=== PATIENT | male | born 1980 | race Hispanic/Latino ===

== ENCOUNTER 2022-10-07 12:27 | Emergency (ER) | payer SELFPAY ==
[2022-10-07 13:48] LABS: Absolute Lymphocytes (CBC) 1.4 K/uL (0.7-4.9); Lymphocytes % 36.9 % (15.3-44.8); MCV 90.5 fL (80-100); MPV 6.9 fL (7.6-11.3); RBC Red Blood Cell Count 4.31 M/uL (4.33-5.43)
--- NOTE | 2022-10-07 13:59 | RAD REPORT ---
EXAM DESCRIPTION: RAD - Chest Single View - 10/07/2022 1:45 pm CLINICAL HISTORY: CHEST PAIN Chest pain. COMPARISON: No comparisons FINDINGS: Portable technique limits examination quality. The lungs are grossly clear. The heart is normal in size. No displaced fractures. IMPRESSION: No acute intrathoracic process suspected.
[2022-10-07 14:05] LABS: Bilirubin Direct 0.1 mg/dL (0-0.2); Bilirubin Total 0.4 mg/dL (0.2-1.0); Potassium 3.6 mmol/L (3.5-5.1); Protein, Total 7.8 g/dL (6.4-8.2); Troponin High Sensitivity 15.1 pg/mL (<58.9)
[2022-10-07 14:16] LABS: SARS-COV-2 RT PCR NEGATIVE (NEGATIVE)
[2022-10-07] MEDS ORDERED: DIAZEPAM 2 MG TABLET ONE (14:24)
[2022-10-07] MEDS ORDERED: NA CHLORIDE 0.9% 1,000 ML ONE (14:24)
[2022-10-07 15:39] LABS: Protime INR 0.96
--- NOTE | 2022-10-07 16:19 | ER ---
Nurse's Notes [facility] Name: Kady Puentes Age: 42 yrs Sex: Male : 1980 Arrival Date: 10/07/2022 Time: 12:32 Bed 3 Private MD: Diagnosis: Anxiety disorder, unspecified;Essential (primary) hypertension;Chest pain, unspecified Presentation: 10/07 13:15 Chief complaint: Patient states: Depression, anxiety, cough, runny nose, CP x 1 week. jl7 Denies SI, denies HI. Coronavirus screen: Vaccine status: Patient reports being unvaccinated. At this time, the client does not indicate any symptoms associated with coronavirus-19. Ebola Screen: No symptoms or risks identified at this time. Initial Sepsis Screen: Does the patient meet any 2 criteria? No. Patient's initial sepsis screen is negative. Does the patient have a suspected source of infection? No. Patient's initial sepsis screen is negative. Risk Assessment: Do you want to hurt yourself or someone else? Patient reports no desire to harm self or others. Onset of symptoms is unknown. 13:15 Method Of Arrival: Ambulatory [facility] 13:15 Acuity: MAGDALENA 2 jl7 Historical: - Allergies: 13:16 No Known Allergies; jl7 - Home Meds: 13:16 losartan oral [Active]; Metformin Oral [Active]; jl7 - PMHx: 13:16 Hypertensive disorder; Diabetes mellitus; jl7 - Immunization history:: Client reports having NOT received the Covid vaccine. - Social history:: Smoking status: Patient denies any tobacco usage or history of. Patient uses alcohol, on a daily basis. - Family history:: not pertinent. - Hospitalizations: : No recent hospitalization is reported. Screenin:42 [facility] ED Fall Risk Assessment (Adult) History of falling in the last 3 months, ld1 including since admission No falls in past 3 months (0 pts). Abuse screen: Denies threats or abuse. Denies injuries from another. Nutritional screening: No deficits noted. Tuberculosis screening: No symptoms or risk factors identified. Assessment: 13:10 Reassessment: Dr. Duenas in triage assessing pt. jl7 14:42 Reassessment: Patient appears in no apparent distress at this time. General: Appears in ld1 no apparent distress. comfortable, Behavior is cooperative, appropriate for age, anxious. Pain: Denies pain. Neuro: Level of Consciousness is awake, alert, obeys commands, Oriented to person, place, time, situation. Cardiovascular: Capillary refill < 3 seconds Patient's skin is warm and dry. Rhythm is sinus rhythm. Respiratory: Airway is patent Respiratory effort is even, unlabored. GI: Abdomen is flat, non-distended. : No signs and/or symptoms were reported regarding the genitourinary system. EENT: No signs and/or symptoms were reported regarding the EENT system. Derm: No signs and/or symptoms reported regarding the dermatologic system. Musculoskeletal: No signs and/or symptoms reported regarding the musculoskeletal system. 15:17 Reassessment: Patient appears in no apparent distress at this time. Patient and/or ld1 family updated on plan of care and expected duration. Pain level reassessed. Patient is alert, oriented x 3, equal unlabored respirations, skin warm/dry/pink. 15:50 Reassessment: Patient appears in no apparent distress at this time. Patient and/or ld1 family updated on plan of care and expected duration. Pain level reassessed. Patient is alert, oriented x 3, equal unlabored respirations, skin warm/dry/pink. 16:37 Reassessment: Patient appears in no apparent distress at this time. Patient and/or ld1 family updated on plan of care and expected duration. Pain level reassessed. Patient is alert, oriented x 3, equal unlabored respirations, skin warm/dry/pink. Patient denies pain at this time. Vital Signs: 13:15 BP 170 / 110; Pulse 101; Resp 17; Temp 98.8; Pulse Ox 98% on R/A; Weight 77.11 kg; jl7 Height 5 ft. 5 in. (165.10 cm); Pain 8/10; 14:42 BP 172 / 105; Pulse 90; Resp 18; Pulse Ox 99% on R/A; ld1 15:17 BP 164 / 112; Pulse 87; Resp 18; Pulse Ox 97% on R/A; ld1 15:50 BP 152 / 102; Pulse 89; Resp 18; Pulse Ox 100% on R/A; ld1 16:37 BP 149 / 99; Pulse 85; Resp 18; Pulse Ox 100% on R/A; Pain 0/10; ld1 13:15 Body Mass Index 28.29 (77.11 kg, 165.10 cm) jl7 ED Course: 12:32 Patient arrived in ED. mr 12:46 Juan Antonio Duenas MD is Attending Physician. rn 13:00 EKG completed in triage. Results shown to MD. jl7 13:16 Triage completed. jl7 13:16 Arm band placed on right wrist. Patient placed in waiting room, Patient notified of jl7 wait time. 13:26 Inserted saline lock: in left forearm, using aseptic technique. Blood collected. zm 13:26 COVID-19/FLU A+B Sent. zm 13:26 ETOH Level Sent. zm 13:26 Basic Metabolic Panel Sent. zm 13:26 CBC with Diff Sent. zm 13:27 LFT's Sent. zm 13:27 NT PRO-BNP Sent. zm 13:27 PT-INR Sent. zm 13:27 Troponin HS Sent. zm 14:36 Linh Kwong, RN is Primary Nurse. ld1 14:42 Patient has correct armband on for positive identification. Placed in gown. Bed in low ld1 position. Call light in reach. Side rails up X2. quality assurance monitor chassis on. Pulse ox on. NIBP on. Door closed. Noise minimized. Warm blanket given. 14:42 No provider procedures requiring assistance completed. Patient maintains SpO2 ld1 saturation greater than 95% on room air. 16:38 IV discontinued, intact, bleeding controlled, No redness/swelling at site. ld1 Administered Medications: 14:41 Drug: Valium (diazepam) 2 mg Route: PO; ld1 14:42 Drug: NS 0.9% 1000 ml Route: IV; Rate: 1000 ml; Site: left antecubital; ld1 Medication: 14:42 VIS not applicable for this client. ld1 Outcome: 16:19 Discharge ordered by . rn 16:37 Discharged to home ambulatory. ld1 16:37 Condition: stable 16:37 Discharge instructions given to patient, Instructed on discharge instructions, follow up and referral plans. Demonstrated understanding of instructions, follow-up care. 16:38 Patient left the ED. ld1 Signatures: Ab Neelam mr Juan Antonio Duenas MD MD rn Leal, Jahala, RN RN jl7 Linh Kwong, YOVANI PINA ld1 Adele Hurtado
--- NOTE | 2022-10-07 16:19 | EDPHYS ---
Physician Documentation [facility] Name: Kady Puentes Age: 42 yrs Sex: Male : 1980 Arrival Date: 10/07/2022 Time: 12:32 Bed 3 Private MD: ED Physician Juan Antonio Duenas HPI: 10/07 15:10 This 42 yrs old Male presents to ER via Ambulatory with complaints of rn depression, anxiety, Chest Pain. 15:10 The patient presents to the emergency department with anxiety, depression. Onset: The rn symptoms/episode began/occurred at an unknown time. Associated signs and symptoms: Pertinent positives; anxiety, chest pain, Pertinent negatives: abdominal pain, delusions, fever, hallucinations, homicidal ideation, substance abuse, suicide ideation. Severity of symptoms: At their worst the symptoms were moderate in the emergency department the symptoms are unchanged. The patient has not experienced similar symptoms in the past. The patient has not recently seen a physician. Pt reports having "a lot of depression and anxiety" lately. Has coped by drinking ETOH. Reports out of work for a week and no family or friends in town. Denies suicidal or homicidal ideations. No overdose. Denies drug use. . Historical: - Allergies: 13:16 No Known Allergies; jl7 - Home Meds: 13:16 losartan oral [Active]; Metformin Oral [Active]; jl7 - PMHx: 13:16 Hypertensive disorder; Diabetes mellitus; jl7 - Immunization history:: Client reports having NOT received the Covid vaccine. - Social history:: Smoking status: Patient denies any tobacco usage or history of. Patient uses alcohol, on a daily basis. - Family history:: not pertinent. - Hospitalizations: : No recent hospitalization is reported. ROS: 15:10 Constitutional: Negative for fever, chills, and weight loss, Eyes: Negative for injury, rn pain, redness, and discharge, Neck: Negative for injury, pain, and swelling, Cardiovascular: Negative for palpitations, and edema, Respiratory: Negative for shortness of breath, cough, wheezing, and pleuritic chest pain, Abdomen/GI: Negative for abdominal pain, nausea, vomiting, diarrhea, and constipation, MS/Extremity: Negative for injury and deformity, Skin: Negative for injury, rash, and discoloration, Neuro: Negative for headache, weakness, numbness, tingling, and seizure, Psych: + for depression and anxiety, neg for suicidal ideations/homicidal ideations Exam: 15:10 Constitutional: This is a well developed, well nourished patient who is awake, alert, rn tearful but polite Head/Face: Normocephalic, atraumatic. Cardiovascular: Regular rate and rhythm. No pulse deficits. Respiratory: No increased work of breathing, no retractions or nasal flaring. Abdomen/GI: Soft, non-tender Skin: Warm, dry MS/ Extremity: Pulses equal, no cyanosis. Neuro: Awake and alert, GCS 15 15:57 ECG was reviewed by the Attending Physician. rn Vital Signs: 13:15 BP 170 / 110; Pulse 101; Resp 17; Temp 98.8; Pulse Ox 98% on R/A; Weight 77.11 kg; jl7 Height 5 ft. 5 in. (165.10 cm); Pain 8/10; 14:42 BP 172 / 105; Pulse 90; Resp 18; Pulse Ox 99% on R/A; ld1 15:17 BP 164 / 112; Pulse 87; Resp 18; Pulse Ox 97% on R/A; ld1 15:50 BP 152 / 102; Pulse 89; Resp 18; Pulse Ox 100% on R/A; ld1 16:37 BP 149 / 99; Pulse 85; Resp 18; Pulse Ox 100% on R/A; Pain 0/10; ld1 13:15 Body Mass Index 28.29 (77.11 kg, 165.10 cm) jl7 MDM: 12:46 Patient medically screened. rn 16:15 Differential diagnosis: depression, anxiety, ETOH intoxication, dehydration, viral rn syndrome. Data reviewed: vital signs, nurses notes, lab test result(s), EKG, radiologic studies, plain films, and as a result, I will discharge patient. Consideration of Admission/Observation Escalation of care including admission/observation considered. 16:16 Independent interpretation of the following test(s) in the Emergency Department EKG: rn See my EKG interpretation above X-Ray: My interpretation is CXR images neg for pneumothorax/pneumonia/widened mediastinum . Counseling: I had a detailed discussion with the patient and/or guardian regarding: the historical points, exam findings, and any diagnostic results supporting the discharge/admit diagnosis, lab results, radiology results, the need for outpatient follow up, to return to the emergency department if symptoms worsen or persist or if there are any questions or concerns that arise at home. Response to treatment: the patient's symptoms have markedly improved after treatment, and as a result, I will discharge patient. Special discussion: Based on the patient's history, exam, and Dx evaluation, there is no indication for emergent intervention or inpatient Tx. It is understood by the patient/guardian that if the Sx's persist or worsen they need to return immediately for re-evaluation. I discussed with the patient/guardian in detail that at this point there is no indication for admission to the hospital. It is understood, however, that if the symptoms persist or worsen the patient needs to return immediately for re-evaluation. ED course: Trop neg, no ischemia on ECG, oxygen 100%, feels much better, again denies suicidal ideation or homicidal ideations. Pt reports takes BP meds sporadically, takes BP in AM and if not elevated doesn't take his meds. Explained to him needs to take it regularly to expect results. Will f/u with his pcp and return precautions given and understood. . 10/07 13:03 Order name: Basic Metabolic Panel 10/07 13:03 Order name: CBC with Diff 10/07 13:03 Order name: LFT's 10/07 13:03 Order name: NT PRO-BNP 10/07 13:03 Order name: PT-INR 10/07 13:03 Order name: Troponin HS 10/07 13:03 Order name: ETOH Level 10/07 13:04 Order name: COVID-19/FLU A+B 10/07 13:54 Order name: CBC with Automated Diff; Complete Time: 15:10 EDMS 10/07 14:05 Order name: Alcohol Serum/Plasma; Complete Time: 15:10 EDMS 10/07 14:05 Order name: Basic Metabolic Panel; Complete Time: 15:10 EDMS 10/07 14:05 Order name: Liver (Hepatic) Function; Complete Time: 15:10 EDMS 10/07 14:05 Order name: Troponin High Sensitivity; Complete Time: 15:10 EDMS 10/07 13:03 Order name: XRAY Chest (1 view) 10/07 13:03 Order name: EKG; Complete Time: 13:04 10/07 13:03 Order name: Cardiac monitoring; Complete Time: 14:42 10/07 13:03 Order name: EKG - Nurse/Tech; Complete Time: 13:27 10/07 13:03 Order name: IV Saline Lock; Complete Time: 13:27 10/07 13:03 Order name: Labs collected and sent; Complete Time: 13:27 10/07 13:03 Order name: O2 Per Protocol; Complete Time: 14:16 10/07 13:03 Order name: O2 Sat Monitoring; Complete Time: 14:16 10/07 13:59 Order name: RAD; Complete Time: 15:10 EDMS 10/07 14:05 Order name: NT PRO-BNP; Complete Time: 15:10 EDMS 10/07 14:17 Order name: COVID-19/FLU A+B; Complete Time: 15:10 EDMS 10/07 15:39 Order name: Protime (+INR); Complete Time: 15:50 EDMS EC:57 Rate is 100 beats/min. Rhythm is regular. Left axis deviation noted. QRS is positive in rn lead I and negative in lead aVF. IA interval is normal. QRS interval is normal. QT interval is normal. No Q waves. T waves are Normal. No ST changes noted. Clinical impression: NSR, LAD. Interpreted by me. Reviewed by me. Administered Medications: 14:41 Drug: Valium (diazepam) 2 mg Route: PO; ld1 14:42 Drug: NS 0.9% 1000 ml Route: IV; Rate: 1000 ml; Site: left antecubital; ld1 Disposition Summary: 10/07/22 16:19 Discharge Ordered Location: Home rn Problem: new rn Symptoms: have improved rn Condition: Stable rn Diagnosis - Anxiety disorder, unspecified rn - Essential (primary) hypertension rn - Chest pain, unspecified rn Followup: rn - With: Private Physician - When: As needed - Reason: Recheck today's complaints, Re-evaluation by your physician Discharge Instructions: - Discharge Summary Sheet rn - Nonspecific Chest Pain, Adult rn - Hypertension, Adult rn - Generalized Anxiety Disorder, Adult rn - Managing Your Hypertension rn - How to Take Your Blood Pressure, [id number] rn Forms: - Medication Reconciliation Form rn - Thank You Letter rn - Antibiotic pattern hanger - Prescription Opioid Use rn Signatures: Dispatcher [employer] Juan Antonio Good MD MD rn Leal, Jahala, RN RN jl7 Linh Kwong RN RN ld1 Corrections: (The following items were deleted from the chart) 15:12 15:10 This 42 yrs old Male presents to ER via Ambulatory with complaints of rn Chest Pain. rn
[2022-10-07 18:07] VITALS: TEMP 98.8
[2022-10-07 18:21] VITALS: O2SAT 100
[2022-10-07 18:22] VITALS: BP 149/99
--- NOTE | 2022-10-09 15:26 | EKG ---
Test Date: 2022-10-07 Test Time: 13:03:43 Splicing Machine Operator: MICHELLE MEASUREMENT RESULTS: Intervals: Rate: 100 NJ: 148 QRSD: 88 QT: 332 QTc: 428 [place]: P: 8 NJ: 148 QRS: -35 T: 24 INTERPRETIVE STATEMENTS: Normal sinus rhythm Left axis deviation Possible Anterior infarct, age undetermined Abnormal ECG No previous ECG available for comparison Electronically Signed On 10-09-22 15:21:17 SECURITY OPERATIONS ENGINEER by David Lopez
== END 2022-10-07 16:38 | disposition home or self-care (01) ==
LOC: ER 12:27
DX: R07.9 Chest pain, unspecified (principal); F41.9 Anxiety disorder, unspecified; I10 Essential (primary) hypertension
CPT/HCPCS: 0240U; 36415; 71045; 80048; 80076; 83880; 84484; 85025; 85610; 93005; 99285; G0480; J7030